=== PATIENT | female | born 1995 | race Caucasian/White ===

== ENCOUNTER → 2021-03-04 | Outpatient (CLI) | payer OTHER ==
[2021-03-04 15:52] LABS: HEMOGLOBIN 14.1 gm/dl (12.3-15.3); RED BLOOD COUNT 4.44 M/UL (4.00-5.10); WHITE BLOOD COUNT 8.7 K/UL (4.5-11.0)
[2021-03-04 16:20] LABS: BUN/CREATININE RATIO 18 (0-10)
== END ==
LOC: LAB 13:58
PROVIDERS: Internal Medicine
DX: M35.00 Sjogren syndrome, unspecified (principal); D89.89 Other specified disorders involving the immune mechanism, not elsewhere classified; Z92.29 Personal history of other drug therapy
CPT/HCPCS: 36415; 80053; 85025